=== PATIENT | male | born 1940 | race Caucasian/White ===

== ENCOUNTER 2020-08-12 10:46 | Outpatient (CLI) | payer BC, MEDICARE | END 2020-08-12 10:47 | disposition home or self-care (01) | LOC: CSHWCC 10:46 | PROVIDERS: ATTEND Nurse Practitioner Family | DX: I87.332 Chronic venous hypertension (idiopathic) with ulcer and inflammation of left lower extremity (principal); I87.2 Venous insufficiency (chronic) (peripheral); L97.222 Non-pressure chronic ulcer of left calf with fat layer exposed; L97.921 Non-pressure chronic ulcer of unspecified part of left lower leg limited to breakdown of skin; I82.449 Acute embolism and thrombosis of unspecified tibial vein; I89.0 Lymphedema, not elsewhere classified; D68.2 Hereditary deficiency of other clotting factors; E03.8 Other specified hypothyroidism; G47.33 Obstructive sleep apnea (adult) (pediatric); I10 Essential (primary) hypertension; R21 Rash and other nonspecific skin eruption; R60.0 Localized edema; Z91.419 Personal history of unspecified adult abuse | CPT/HCPCS: 99212; 99213; G0463 ==

== ENCOUNTER 2020-09-09 11:37 | Outpatient (CLI) | payer BC, MEDICARE | END 2020-09-09 11:38 | disposition home or self-care (01) | LOC: CSHWCC 11:37 | PROVIDERS: ATTEND Nurse Practitioner Family | DX: I87.332 Chronic venous hypertension (idiopathic) with ulcer and inflammation of left lower extremity (principal); L97.222 Non-pressure chronic ulcer of left calf with fat layer exposed; L97.921 Non-pressure chronic ulcer of unspecified part of left lower leg limited to breakdown of skin; R60.0 Localized edema; D68.2 Hereditary deficiency of other clotting factors; E03.8 Other specified hypothyroidism; G47.33 Obstructive sleep apnea (adult) (pediatric); I10 Essential (primary) hypertension; I82.449 Acute embolism and thrombosis of unspecified tibial vein; I87.2 Venous insufficiency (chronic) (peripheral); I89.0 Lymphedema, not elsewhere classified; R21 Rash and other nonspecific skin eruption; Z91.419 Personal history of unspecified adult abuse | CPT/HCPCS: 99213; G0463 ==

== ENCOUNTER 2020-12-29 09:58 | Outpatient (CLI) | payer BC, MEDICARE | END 2020-12-29 09:59 | disposition home or self-care (01) | LOC: CSHWCC 09:58 | PROVIDERS: ATTEND Nurse Practitioner Family | DX: I87.332 Chronic venous hypertension (idiopathic) with ulcer and inflammation of left lower extremity (principal); I87.2 Venous insufficiency (chronic) (peripheral); L97.222 Non-pressure chronic ulcer of left calf with fat layer exposed; I82.449 Acute embolism and thrombosis of unspecified tibial vein; D68.2 Hereditary deficiency of other clotting factors; E03.8 Other specified hypothyroidism; G47.33 Obstructive sleep apnea (adult) (pediatric); I10 Essential (primary) hypertension; I89.0 Lymphedema, not elsewhere classified; R21 Rash and other nonspecific skin eruption; R60.0 Localized edema; Z91.419 Personal history of unspecified adult abuse | CPT/HCPCS: 11042; 99213; G0463 ==

== ENCOUNTER 2021-06-01 14:59 | Inpatient (IN) | payer BC, MEDICARE ==
[2021-06-01 16:02] LABS: #Eosinphils 0.1 10x3/uL (0.0-0.5); #Neutrophils 7.1 10x3/uL (1.5-8.4); %Basophils 0.2 % (0.0-2.0); %Eosinophils 1.1 % (0.0-6.0); %Lymphocytes 7.5 % (18.0-47.0); %Monocytes 11.5 % (0.0-10.0); %Neutrophils 79.3 % (40.0-75.0); Hemoglobin 12.7 g/dL (13.5-17.5); Mean Corpuscular HGB CONC 32.8 g/dL (32.0-36.0); Mean Corpuscular Hemoglobin 30.7 pg (27.0-33.0); Mean Corpuscular Volume 93.5 fl (81.2-95.1); Platelet Count 274 10x3/uL (150-450); RBC Distribution Width 12.6 % (11.5-14.5); Red Blood Cell (RBC) Count 4.14 10x6/uL (4.32-5.72); White Blood Cell (WBC) Count 8.9 10x3/uL (3.5-10.5)
[2021-06-01 16:16] LABS: ALT (SGPT) 24 U/L (8-55); AST (SGOT) 27 U/L (5-34); Albumin 3.3 g/dL (3.4-4.8); Alkaline Phosphatase 67 U/L (40-110); Anion Gap 14 mmol/L (10-20); BUN (Urea Nitrogen) 18 mg/dL (8.4-25.7); Bilirubin, Total 1.4 mg/dL (0.2-1.2); Calc. Creatinine Clearance 0 mL/min (70-130); Calcium 8.3 mg/dL (7.8-10.44); Carbon Dioxide 25 mmol/L (23-31); Chloride 100 mmol/L (98-107); Globulin 2.9 g/dL (2.4-3.5); Glucose 94 mg/dL (83-110); Magnesium 1.9 mg/dL (1.6-2.6); Potassium 3.7 mmol/L (3.5-5.1); Protein, Total 6.2 g/dL (5.8-8.1); Sodium 135 mmol/L (136-145)
[2021-06-01] MEDS ORDERED: Calcium Carbonate 500 MG ChewTAB PO PRN (21:23)
[2021-06-01] MEDS ORDERED: Ondansetron PF 4 MG/2 ML Vial IVP PRN (21:23)
[2021-06-01] MEDS ORDERED: Senokot S 8.6-50 MG TAB PO PRN (21:23)
[2021-06-01] MEDS ORDERED: Guaifenesin DM 100-10/5 ML UDCUP PO PRN (21:23)
[2021-06-01] MEDS ORDERED: Acetaminophen 325 MG TAB PO PRN (21:23)
[2021-06-01] MEDS ORDERED: Triple Antibiotic Oint 1 GM Packet ONE (22:04)
[2021-06-01 23:08] LABS: Bilirubin Neg (Negative); Blood, Urine 25 (Negative); Clarity Clear (Clear); Glucose, Urine (Dipstick) Normal (Negative); Ketone, Urine 5 mg/dL (Negative); Leukocyte 25 (Negative); Nitrite Negative (Negative); Protein, Urine (Dipstick) 30 mg/dl (Neg-Trace)
[2021-06-01 23:15] LABS: Bacteria/HPF Rare-Few HPF (None Seen); Squamous Epithelial 0-3 HPF (0-3)
[2021-06-02 04:00] LABS: #Eosinphils 0.1 10x3/uL (0.0-0.5); #Monocytes 1.1 10x3/uL (0.0-1.1); #Neutrophils 6.7 10x3/uL (1.5-8.4); %Basophils 0.3 % (0.0-2.0); %Eosinophils 1.2 % (0.0-6.0); %Lymphocytes 11.6 % (18.0-47.0); %Monocytes 12.4 % (0.0-10.0); %Neutrophils 74.2 % (40.0-75.0); Hemoglobin 12.7 g/dL (13.5-17.5); Mean Corpuscular HGB CONC 32.7 g/dL (32.0-36.0); Mean Corpuscular Hemoglobin 30.7 pg (27.0-33.0); Mean Corpuscular Volume 93.7 fl (81.2-95.1); Platelet Count 318 10x3/uL (150-450); RBC Distribution Width 12.6 % (11.5-14.5); Red Blood Cell (RBC) Count 4.14 10x6/uL (4.32-5.72)
[2021-06-02 04:08] LABS: ALT (SGPT) 35 U/L (8-55); AST (SGOT) 37 U/L (5-34); Albumin 3.5 g/dL (3.4-4.8); Alkaline Phosphatase 69 U/L (40-110); Anion Gap 12 mmol/L (10-20); BUN (Urea Nitrogen) 16 mg/dL (8.4-25.7); Bilirubin, Total 1.5 mg/dL (0.2-1.2); CK (CPK) 41 U/L (30-200); Calc. Creatinine Clearance 0 mL/min (70-130); Carbon Dioxide 28 mmol/L (23-31); Chloride 99 mmol/L (98-107); Globulin 3.3 g/dL (2.4-3.5); Glucose 114 mg/dL (83-110); Potassium 3.7 mmol/L (3.5-5.1); Protein, Total 6.8 g/dL (5.8-8.1); Sodium 135 mmol/L (136-145)
[2021-06-02 04:27] LABS: Syphilis Antibody Nonreactive (Nonreactive); Syphilis Antibody Index 0.06 S/CO (<1.00 Non-Reactive); Thyroid Stimulating Hormone 1.5298 uIU/mL (0.35-4.94)
[2021-06-02] MEDS ORDERED: Triple Antibiotic Oint 1 GM Packet ONE (09:04)
[2021-06-02] MEDS ORDERED: Famotidine 20 MG TAB ONE (09:05)
[2021-06-02] MEDS: Famotidine 20 MG TAB PO SCH ×2 (09:05→22:14)
[2021-06-02] MEDS: Finasteride 5 MG TAB PO SCH (09:06)
[2021-06-02] MEDS: Gabapentin 300 MG CAP PO SCH ×2 (09:06→09:26)
[2021-06-02] MEDS ORDERED: Gabapentin 300 MG CAP ONE (09:06)
[2021-06-02] MEDS: Triple Antibiotic Oint 1 GM Packet TOP SCH ×2 (09:12→22:15)
[2021-06-02] MEDS: Thyroid 60 MG TAB PO SCH (09:13)
[2021-06-02] MEDS: Rivaroxaban 15 MG TAB PO SCH (09:13)
[2021-06-02] MEDS: HYDROcodone/Acetaminophen 5/325 mg Tablet PO PRN (19:56)
[2021-06-02] MEDS ORDERED: HYDROcodone/Acetaminophen 5/325 mg Tablet ONE (19:56)
[2021-06-02 20:38] VITALS: BMI 42.1
[2021-06-02] MEDS ORDERED: Rosuvastatin 10 MG TAB PO SCH (21:00)
[2021-06-02] MEDS: Tamsulosin HCl 0.4 MG CAP PO SCH (21:13)
[2021-06-02] MEDS ORDERED: Gabapentin 300 MG CAP PO SCH (22:00)
[2021-06-02] MEDS: Lisinopril 2.5 MG TAB PO SCH (22:16)
[2021-06-03] MEDS: Gabapentin 300 MG CAP PO SCH (00:32)
[2021-06-03 04:03] LABS: #Eosinphils 0.4 10x3/uL (0.0-0.5); #Monocytes 1.1 10x3/uL (0.0-1.1); #Neutrophils 5.8 10x3/uL (1.5-8.4); %Basophils 0.3 % (0.0-2.0); %Lymphocytes 17.3 % (18.0-47.0); %Monocytes 12.6 % (0.0-10.0); %Neutrophils 65.5 % (40.0-75.0); Hemoglobin 12.2 g/dL (13.5-17.5); Mean Corpuscular HGB CONC 33.1 g/dL (32.0-36.0); Mean Corpuscular Hemoglobin 31.1 pg (27.0-33.0); Mean Corpuscular Volume 94.1 fl (81.2-95.1); Mean Platelet Volume 8.9 fl (7.4-10.4); Platelet Count 316 10x3/uL (150-450); RBC Distribution Width 12.8 % (11.5-14.5); Red Blood Cell (RBC) Count 3.92 10x6/uL (4.32-5.72); White Blood Cell (WBC) Count 8.8 10x3/uL (3.5-10.5)
[2021-06-03 04:05] LABS: SARS-CoV-2 NAA Rapid Test Not Detected (NotDetected)
[2021-06-03] MEDS: HYDROcodone/Acetaminophen 5/325 mg Tablet PO PRN ×2 (04:07→19:38)
[2021-06-03 04:16] LABS: INR-International Normal Ratio 1.2; PTT 33.6 sec (22.0-33.0); Prothrombin Time 13.5 sec (9.5-12.1)
[2021-06-03 04:24] LABS: ALT (SGPT) 36 U/L (8-55); AST (SGOT) 32 U/L (5-34); Albumin 3.3 g/dL (3.4-4.8); Alkaline Phosphatase 74 U/L (40-110); Anion Gap 13 mmol/L (10-20); BUN (Urea Nitrogen) 19 mg/dL (8.4-25.7); Bilirubin, Total 0.8 mg/dL (0.2-1.2); Calc. Creatinine Clearance 118 mL/min (70-130); Calcium 8.9 mg/dL (7.8-10.44); Carbon Dioxide 30 mmol/L (23-31); Chloride 99 mmol/L (98-107); Globulin 3.3 g/dL (2.4-3.5); Glucose 101 mg/dL (83-110); Phosphorus 3.5 mg/dL (2.3-4.7); Potassium 3.8 mmol/L (3.5-5.1); Protein, Total 6.6 g/dL (5.8-8.1); Sodium 138 mmol/L (136-145)
[2021-06-03] MEDS ORDERED: BUPRENORPHINE TOP SCH (09:00)
[2021-06-03] MEDS ORDERED: Finasteride 5 MG TAB PO SCH (09:00)
[2021-06-03] MEDS: traMADol HCl 50 MG TAB PO SCH ×2 (09:58→16:22)
[2021-06-03] MEDS: Triple Antibiotic Oint 1 GM Packet TOP SCH (09:58)
[2021-06-03] MEDS: Lisinopril 2.5 MG TAB PO SCH ×2 (09:59→16:24)
[2021-06-03] MEDS: Famotidine 20 MG TAB PO SCH ×2 (09:59→19:28)
[2021-06-03] MEDS: Finasteride 5 MG TAB PO SCH (10:02)
[2021-06-03] MEDS: Rivaroxaban 15 MG TAB PO SCH (10:02)
[2021-06-03] MEDS: Thyroid 60 MG TAB PO SCH (10:17)
[2021-06-03] MEDS ORDERED: BUPRENORPHINE 7.5 MCG/HR TD SCH (15:00)
[2021-06-03] MEDS: Tamsulosin HCl 0.4 MG CAP PO SCH (19:14)
[2021-06-03] MEDS ORDERED: Non-Formulary Medication 1 EACH (Gabapentin [Gabapentin] 600 MG Tablet) PO SCH (21:00)
[2021-06-03] MEDS ORDERED: Rosuvastatin 10 MG TAB PO SCH (21:00)
[2021-06-03] MEDS ORDERED: Gabapentin 300 MG CAP PO SCH (21:00)
[2021-06-03] MEDS ORDERED: Lisinopril 2.5 MG TAB PO SCH (22:00)
[2021-06-04 01:37] VITALS: BP 123/65; TEMP 97.7
== END 2021-06-03 21:58 | DRG 554 ==
LOC: CSHERS 14:59 → INTOOBSV 21:23 → CSHERHOLD 21:23 → UNDOADMIN 06-02 01:40 → CSHERHOLD 06-02 01:40 → CSHTELE 06-02 21:26 → OBSVTOIN 06-03 10:40
PROVIDERS: ADMIT Student in an Organized Health Care Education/Training Program; ATTEND Family Medicine
DX: M16.12 Unilateral primary osteoarthritis, left hip (principal); Z68.41 Body mass index [BMI] 40.0-44.9, adult; I80.222 Phlebitis and thrombophlebitis of left popliteal vein; G91.9 Hydrocephalus, unspecified; I50.42 Chronic combined systolic (congestive) and diastolic (congestive) heart failure; I13.0 Hypertensive heart and chronic kidney disease with heart failure and stage 1 through stage 4 chronic kidney disease, or unspecified chronic kidney disease; Z20.822 Contact with and (suspected) exposure to COVID-19; R93.0 Abnormal findings on diagnostic imaging of skull and head, not elsewhere classified; R53.81 Other malaise; E66.01 Morbid (severe) obesity due to excess calories; N18.9 Chronic kidney disease, unspecified; E78.00 Pure hypercholesterolemia, unspecified; N20.0 Calculus of kidney; I73.9 Peripheral vascular disease, unspecified; G47.33 Obstructive sleep apnea (adult) (pediatric); N40.0 Benign prostatic hyperplasia without lower urinary tract symptoms; I35.0 Nonrheumatic aortic (valve) stenosis; R01.1 Cardiac murmur, unspecified; I25.118 Atherosclerotic heart disease of native coronary artery with other forms of angina pectoris; D53.9 Nutritional anemia, unspecified; E03.9 Hypothyroidism, unspecified; Z86.718 Personal history of other venous thrombosis and embolism; Z79.01 Long term (current) use of anticoagulants
CPT/HCPCS: 36415; 70450; 70553; 71045; 72125; 80053; 81003; 81015; 82550; 82607; 82746; 83735; 84100; 84443; 84484; 85025; 85610; 85730; 86780; 86850; 86900; 86901; 87086; 93005; 93306; 93923; G0378; U0002

== ENCOUNTER 2021-08-14 14:09 | Emergency (ER) | payer BC, MEDICARE ==
[2021-08-14 15:01] LABS: #Eosinphils 0.2 10x3/uL (0.0-0.5); #Monocytes 0.8 10x3/uL (0.0-1.1); #Neutrophils 6.3 10x3/uL (1.5-8.4); %Basophils 0.5 % (0.0-2.0); %Lymphocytes 13.1 % (18.0-47.0); %Monocytes 9.5 % (0.0-10.0); %Neutrophils 74.5 % (40.0-75.0); Hemoglobin 14.3 g/dL (13.5-17.5); Mean Corpuscular HGB CONC 32.9 g/dL (32.0-36.0); Mean Corpuscular Hemoglobin 30.4 pg (27.0-33.0); Mean Corpuscular Volume 92.6 fl (81.2-95.1); Mean Platelet Volume 8.4 fl (7.4-10.4); Platelet Count 351 10x3/uL (150-450); RBC Distribution Width 12.7 % (11.5-14.5); White Blood Cell (WBC) Count 8.4 10x3/uL (3.5-10.5)
[2021-08-14 15:12] LABS: ALT (SGPT) 38 U/L (8-55); AST (SGOT) 32 U/L (5-34); Albumin 3.8 g/dL (3.4-4.8); Alkaline Phosphatase 71 U/L (40-110); Anion Gap 16 mmol/L (10-20); BUN (Urea Nitrogen) 17 mg/dL (8.4-25.7); Calc. Creatinine Clearance 0 mL/min (70-130); Calcium 10.1 mg/dL (7.8-10.44); Carbon Dioxide 25 mmol/L (23-31); Chloride 103 mmol/L (98-107); Globulin 3.8 g/dL (2.4-3.5); Glucose 105 mg/dL (83-110); Potassium 5.1 mmol/L (3.5-5.1); Protein, Total 7.6 g/dL (5.8-8.1); Sodium 139 mmol/L (136-145)
[2021-08-14] MEDS ORDERED: HYDROcodone/Acetaminophen 10/325 mg Tablet ONE ×2 (16:44→19:58)
[2021-08-14 17:19] LABS: Troponin I 0.012 ng/mL (< 0.028)
[2021-08-14] MEDS ORDERED: Morphine 4 MG/ML VIAL ONE (19:10)
== END 2021-08-14 20:41 | disposition home or self-care (01) ==
LOC: CSHERS 14:09
DX: R07.9 Chest pain, unspecified (principal)
CPT/HCPCS: 36415; 71045; 80053; 84484; 85025; 93005; 96374; J2270

== ENCOUNTER 2022-03-16 08:42 | Outpatient (CLI) | payer BC, MEDICARE | END 2022-03-16 08:43 | disposition home or self-care (01) | LOC: CSHCT 08:42 | PROVIDERS: ATTEND Urology | DX: R31.29 Other microscopic hematuria (principal); N20.0 Calculus of kidney; N28.1 Cyst of kidney, acquired; K80.20 Calculus of gallbladder without cholecystitis without obstruction; M16.9 Osteoarthritis of hip, unspecified | CPT/HCPCS: 74178; 82565 ==

== ENCOUNTER 2023-04-27 14:31 | Outpatient (CLI) | payer MEDICARE, BC | END 2023-04-27 14:32 | disposition home or self-care (01) | LOC: CSHCT 14:31 | PROVIDERS: ATTEND Neurological Surgery | DX: G91.9 Hydrocephalus, unspecified (principal); Z98.2 Presence of cerebrospinal fluid drainage device | CPT/HCPCS: 70450 ==

== ENCOUNTER 2023-05-10 14:37 | Outpatient (CLI) | payer MEDICARE, BC | END 2023-05-10 14:38 | disposition home or self-care (01) | LOC: CSHCT 14:37 | PROVIDERS: ATTEND Neurological Surgery | DX: G91.2 (Idiopathic) normal pressure hydrocephalus (principal); Z98.2 Presence of cerebrospinal fluid drainage device; G93.89 Other specified disorders of brain | CPT/HCPCS: 70450 ==

== ENCOUNTER 2023-05-20 14:55 | Outpatient (CLI) | payer MEDICARE | END 2023-05-20 14:56 | disposition home or self-care (01) | LOC: CSHCT 14:55 | PROVIDERS: ATTEND Neurological Surgery | DX: G91.2 (Idiopathic) normal pressure hydrocephalus (principal); Z98.2 Presence of cerebrospinal fluid drainage device; G93.89 Other specified disorders of brain | CPT/HCPCS: 70450 ==

== ENCOUNTER 2023-06-30 14:04 | Emergency (ER) | payer MEDICARE, BC ==
[~2023-06-30 14:04] MED LIST: Iopamidol 300 61% 100 ML VIAL FS ONE
[2023-06-30 15:28] LABS: #Eosinphils 0.2 10x3/uL (0.0-0.5); #Monocytes 0.5 10x3/uL (0.0-1.1); #Neutrophils 3.8 10x3/uL (1.5-8.4); %Basophils 0.6 % (0.0-2.0); %Eosinophils 2.9 % (0.0-6.0); %Lymphocytes 12.6 % (18.0-47.0); %Monocytes 10.1 % (0.0-10.0); %Neutrophils 73.6 % (40.0-75.0); Mean Corpuscular HGB CONC 32.5 g/dL (32.0-36.0); Mean Corpuscular Hemoglobin 29.1 pg (27.0-33.0); Mean Corpuscular Volume 89.5 fl (81.2-95.1); Mean Platelet Volume 8.4 fl (7.4-10.4); Platelet Count 307 10x3/uL (150-450); RBC Distribution Width 13.4 % (11.5-14.5); Red Blood Cell (RBC) Count 4.47 10x6/uL (4.32-5.72); White Blood Cell (WBC) Count 5.1 10x3/uL (3.5-10.5)
[2023-06-30 15:49] LABS: ALT (SGPT) 10 U/L (8-55); AST (SGOT) 15 U/L (5-34); Albumin 3.6 g/dL (3.4-4.8); Alkaline Phosphatase 72 U/L (40-110); Anion Gap 13 mmol/L (10-20); BUN (Urea Nitrogen) 13 mg/dL (8.4-25.7); Bilirubin, Total 0.9 mg/dL (0.2-1.2); Calc. Creatinine Clearance 0 mL/min (70-130); Calcium 8.8 mg/dL (7.8-10.44); Carbon Dioxide 26 mmol/L (23-31); Chloride 102 mmol/L (98-107); Estimated GFR 92; Globulin 2.8 g/dL (2.4-3.5); Glucose 103 mg/dL (83-110); Lipase 10 U/L (8-78); Magnesium 1.9 mg/dL (1.6-2.6); Potassium 4.3 mmol/L (3.5-5.1); Protein, Total 6.4 g/dL (5.8-8.1); Sodium 137 mmol/L (136-145)
[2023-06-30 15:52] LABS: Troponin I 0.016 ng/mL (< 0.028)
[2023-06-30 17:54] LABS: Bilirubin Neg (Negative); Blood, Urine 150 (Negative); Clarity Cloudy (Clear); Glucose, Urine (Dipstick) Normal (Negative); Ketone, Urine Negative (Negative); Leukocyte 25 (Negative); Nitrite Negative (Negative); Protein, Urine (Dipstick) 15 mg/dl (Neg-Trace); Urobilinogen Normal mg/dL (Less than 2)
[2023-06-30 18:10] LABS: Bacteria/HPF Rare-Few HPF (None Seen); CAUTI Indications for Culture Pelvic or flank pain; Mucous/LPF Rare LPF (<2+); RBC/HPF 21-50 HPF (0-3); Squamous Epithelial 0-3 HPF (0-3); WBC/HPF 0-3 HPF (0-3)
[2023-06-30 18:13] LABS: Calcium Oxalate Crystals Rare HPF (None Seen)
[2023-06-30 18:14] LABS: Urine Culture Reflex No No
== END 2023-06-30 23:27 | disposition home or self-care (01) ==
LOC: CSHERS 14:04
DX: R10.84 Generalized abdominal pain (principal); E03.9 Hypothyroidism, unspecified; E78.5 Hyperlipidemia, unspecified; I48.91 Unspecified atrial fibrillation; Z79.899 Other long term (current) drug therapy; Z79.01 Long term (current) use of anticoagulants
CPT/HCPCS: 70450; 74177; 76705; 80053; 81001; 83690; 83735; 84484; 85025; 93005; Q9967

== ENCOUNTER 2023-10-13 15:00 | Outpatient (CLI) | payer MEDICARE, BC | END 2023-10-13 15:01 | disposition home or self-care (01) | LOC: CSHCT 15:00 | PROVIDERS: ATTEND Urology | DX: N20.0 Calculus of kidney (principal); E79.0 Hyperuricemia without signs of inflammatory arthritis and tophaceous disease; K80.20 Calculus of gallbladder without cholecystitis without obstruction; K59.00 Constipation, unspecified; K57.30 Diverticulosis of large intestine without perforation or abscess without bleeding; I51.7 Cardiomegaly; J94.8 Other specified pleural conditions | CPT/HCPCS: 74176 ==

== ENCOUNTER 2024-01-30 16:00 | Outpatient (CLI) | payer MEDICARE, BC | END 2024-01-30 16:01 | disposition home or self-care (01) | LOC: CSHSLEEP 16:00 | PROVIDERS: ATTEND Nurse Practitioner Family | DX: G47.33 Obstructive sleep apnea (adult) (pediatric) (principal); R53.83 Other fatigue; G31.84 Mild cognitive impairment of uncertain or unknown etiology; K21.9 Gastro-esophageal reflux disease without esophagitis; E66.9 Obesity, unspecified; R06.83 Snoring; G47.00 Insomnia, unspecified; G47.10 Hypersomnia, unspecified; Z68.41 Body mass index [BMI] 40.0-44.9, adult | CPT/HCPCS: 95811 ==

== ENCOUNTER 2024-02-01 07:58 | Outpatient (CLI) | payer MEDICARE ==
[2024-02-01] MEDS ORDERED: Iopamidol 300 61% 100 ML VIAL FS ONE (10:10)
== END 2024-02-01 07:59 | disposition home or self-care (01) ==
LOC: CSHCT 07:58
PROVIDERS: ATTEND Psychiatry & Neurology Neurology
DX: M48.061 Spinal stenosis, lumbar region without neurogenic claudication (principal); M43.16 Spondylolisthesis, lumbar region; M43.18 Spondylolisthesis, sacral and sacrococcygeal region; M48.07 Spinal stenosis, lumbosacral region; N20.0 Calculus of kidney
CPT/HCPCS: 72133

== ENCOUNTER 2024-07-02 12:49 | Outpatient (CLI) | payer MEDICARE, BC | END 2024-07-02 12:50 | disposition home or self-care (01) | LOC: CSHCT 12:49 | PROVIDERS: ATTEND Neurological Surgery | DX: G91.9 Hydrocephalus, unspecified (principal); Z98.2 Presence of cerebrospinal fluid drainage device | CPT/HCPCS: 70450 ==

== ENCOUNTER 2025-01-31 00:12 | Emergency (ER) | payer MEDICARE, BC | END 2025-01-31 02:58 | disposition home or self-care (01) | LOC: CSHERS 00:12 | DX: K59.00 Constipation, unspecified (principal); E78.5 Hyperlipidemia, unspecified; E03.9 Hypothyroidism, unspecified; I48.91 Unspecified atrial fibrillation; Z86.718 Personal history of other venous thrombosis and embolism; Z79.01 Long term (current) use of anticoagulants | CPT/HCPCS: 74176 ==

== ENCOUNTER 2025-03-19 13:33 | Outpatient (CLI) | payer MEDICARE, BC | END 2025-03-19 13:34 | disposition home or self-care (01) | LOC: CSHCT 13:33 | PROVIDERS: ATTEND Urology | DX: N20.0 Calculus of kidney (principal); K59.39 Other megacolon | CPT/HCPCS: 74176 ==